=== PATIENT | male | born 1990 | race African-American/Black ===

== ENCOUNTER 2018-05-07 03:01 | Inpatient (IN) | payer SELFPAY ==
[2018-05-07] MEDS ORDERED: Morphine 4 MG/ML VIAL ONE (03:34)
[2018-05-07] MEDS ORDERED: CEFAZOLIN 1 GM VIAL ONE (03:34)
[2018-05-07] MEDS ORDERED: Morphine 4 MG/ML VIAL SLOW IVP PRN (06:06)
[2018-05-07 06:56] VITALS: BMI 21.4
[2018-05-07] MEDS ORDERED: CEFAZOLIN/Water 2 GM/20 ML SYRINGE SLOW IVP SCH ×2 (08:00→20:00)
[2018-05-07] MEDS ORDERED: CEFAZOLIN 2 GM/50 ML-DEXTROSE 2 GM in Premix Bag 1 BAG IVPB SCH (08:15)
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
[2018-05-07] MEDS ORDERED: Ketorolac Tromethamine 30 MG/ML VIAL ONE (11:41)
[2018-05-07] MEDS ORDERED: ePHEDrine/0.9% NaCl/PF SYRINGE 50 mg/10 ml ONE (11:41)
[2018-05-07] MEDS ORDERED: Metoprolol Tartrate 5 MG/5 ML VIAL ONE (11:41)
[2018-05-07] MEDS ORDERED: PROPOFOL 200 MG/20 ML VIAL ONE (11:41)
[2018-05-07] MEDS ORDERED: Lidocaine 1% PF 5 ML VIAL ONE (11:41)
[2018-05-07] MEDS ORDERED: Ondansetron PF 4 MG/2 ML Vial ONE (11:41)
[2018-05-07] MEDS ORDERED: CEFAZOLIN 2 GM/50 ML BAG ONE (11:53)
[2018-05-07] MEDS ORDERED: Fentanyl 250 MCG/5 ML VIAL ONE (12:33)
[2018-05-07] MEDS ORDERED: Midazolam HCl 2 mg/2 ml Vial ONE (12:48)
[2018-05-07] MEDS ORDERED: Acetaminophen/Codeine 30-300mg Tablet PO PRN (14:27)
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
[2018-05-07] MEDS: Sodium Chloride 0.9% 1,000 ML IV SCH (19:42)
[2018-05-07] MEDS: CEFAZOLIN 2 GM/50 ML-DEXTROSE 2 GM in Premix Bag 1 BAG IVPB SCH (20:10)
[2018-05-07] MEDS: Acetaminophen/Codeine 30-300mg Tablet PO PRN (20:24)
[2018-05-08] MEDS: Acetaminophen/Codeine 30-300mg Tablet PO PRN (01:50)
[2018-05-08] MEDS: CEFAZOLIN 2 GM/50 ML-DEXTROSE 2 GM in Premix Bag 1 BAG IVPB SCH ×2 (03:13→12:25)
[2018-05-08] MEDS ORDERED: Ondansetron PF 4 MG/2 ML Vial SLOW IVP PRN (03:59)
[2018-05-08] MEDS ORDERED: Enoxaparin Sodium 40 MG/0.4 ML SYRINGE SC SCH (09:00)
[2018-05-08 12:37] VITALS: BP 150/117; TEMP 98.5
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
--- NOTE | 2018-05-13 14:40 | PQF ---
ALAYNA DONATO GARY PA-C [id number] [facility] [address]- [id number] CLINICAL DOCUMENTATION CLARIFICATION FORM: POST DISCHARGE Addendum to original discharge summary date: ____ Late entry note date: __ DATE: 05/13/2018 ATTN: BEKA Please exercise your independent, professional judgment in responding to the clarification form. Clinical indicators are provided on the bottom of this form for your review Please check appropriate box(s): Substance(s): [ X ] Marijuana Status: [ X ] Use [ ] Abuse [ ] Dependence [ ] Continuous use Associated with: [ ] Other associated condition: [ ] Other diagnosis [ ] Unable to determine In addition, please specify: Present on Admission (POA): [ ] Yes [ ] No [ X ] Unable to determine For continuity of documentation, please document condition throughout progress notes and discharge summary. Thank You. CLINICAL INDICATORS - SIGNS / SYMPTOMS / LABS: 05/07/18 -ER report - abuses marijuana 05/07/18- H&P - Smokes marijuana 05/07/18 Ortho Consult - Recreationally uses marijuana RISKS: Hx of substance abuse Uses tobacco Acute pain secondary to trauma TREATMENT: Drug screen (This form is maintained as a part of the permanent medical record) 2015 [employer] All Rights Reserved Jacqueline Campa, LAWANDA, [email or web address] [phone] [id number]
== END 2018-05-08 12:55 | disposition home or self-care (01) | DRG 501 ==
LOC: ERS 03:01 → SURG B 03:40
PROVIDERS: ADMIT Orthopaedic Surgery; ATTEND Orthopaedic Surgery
PROC: 0KQB0ZZ Repair Left Lower Arm and Wrist Muscle, Open Approach (ICD-10-PCS; principal; 2018-05-07)
PROC: 0LQ50ZZ Repair Right Lower Arm and Wrist Tendon, Open Approach (ICD-10-PCS; 2018-05-07)
PROC: 0JQH0ZZ Repair Left Lower Arm Subcutaneous Tissue and Fascia, Open Approach (ICD-10-PCS; 2018-05-07)
PROC: 0JQG0ZZ Repair Right Lower Arm Subcutaneous Tissue and Fascia, Open Approach (ICD-10-PCS; 2018-05-07)
DX: S56.521A Laceration of other extensor muscle, fascia and tendon at forearm level, right arm, initial encounter (principal); S56.522A Laceration of other extensor muscle, fascia and tendon at forearm level, left arm, initial encounter; S51.011A Laceration without foreign body of right elbow, initial encounter; S51.012A Laceration without foreign body of left elbow, initial encounter; W13.4XXA Fall from, out of or through window, initial encounter; W01.110A Fall on same level from slipping, tripping and stumbling with subsequent striking against sharp glass, initial encounter; Y92.009 Unspecified place in unspecified non-institutional (private) residence as the place of occurrence of the external cause; G89.11 Acute pain due to trauma; F17.210 Nicotine dependence, cigarettes, uncomplicated; F12.90 Cannabis use, unspecified, uncomplicated
CPT/HCPCS: 96365; 96375; J0690; J1650; J1885; J2001; J2250; J2270; J2405; J2704; J3010